=== PATIENT | male | born 1985 | race Caucasian/White ===

== ENCOUNTER → 2018-03-14 19:48 | Outpatient (CLI) | payer OTHER, MEDICAID, SELFPAY ==
[2018-03-14 20:33] LABS: Anion Gap 13.6 mEq/L (5-15); Blood Urea Nitrogen 14 mg/dL (7-18); Carbon Dioxide 28 mmol/L (21.0-32.0); Chloride 102 mmol/L (98-107); Creatinine,Serum 1.04 mg/dL (0.70-1.30); Estimated Glomerular Filt Rate 82 ml/min (>60); GFR (African American) 100 ML/MIN (>60); Glucose 94 mg/dL (74-106); Potassium 3.6 mmoL/L (3.5-5.1); Sodium 140 mmol/L (136-145); Uric Acid 5.7 mg/dL (2.6-7.2)
== END ==
PROVIDERS: PCP Emergency Medicine; Visit Provider Emergency Medicine
DX: M79.674 Pain in right toe(s) (principal)
CPT/HCPCS: 80048; 84550

== ENCOUNTER 2020-09-27 13:19 | Emergency (ER) | payer OTHER, SELFPAY ==
[2020-09-27 13:32] VITALS: BP 141/96; PULSE 87; RESP 20; TEMP 36.9; O2SAT 100; BMI 30.2
--- NOTE | 2020-09-27 13:35 | HMH.EDUTC ---
[facility] Disposition Clinical Impression: Viral gastroenteritis Disposition: Home, Self-Care Condition on Discharge: Good Instructions: Viral Gastroenteritis, DI for Viral Gastroenteritis -- Adult Additional Instructions: Drink plenty of fluids. Water or gatorade would be best. Take tylenol for pain or fever. If your symptoms worsen please return FERNIE. Follow up with your regular doctor. GO TO THE ER FOR ANY WORSENING SYMPTOMS Prescriptions: Ondansetron [Zofran 4mg ODT] 4 mg PO Q8HP PRN #12 tab.rapdis PRN Reason: Nausea Transmission Status: Received by [facility] Referrals: PCP,No [Primary Care Provider] - Time of Disposition: 13:58 Medical Decision Making - Medical Records Medical records reviewed: No: I reviewed the patient's medical records. - Florin Inquiry Pt receiving controlled substance: No Vital Signs: 09/27/20 13:32 Temperature 98.5 F Temperature Source Oral Pulse Rate [Right Brachial] 87 Respiratory Rate 20 Blood Pressure [Right Arm] 141/96 H Blood Pressure Mean [Right Arm] 111 Blood Pressure Source [Right Arm] Automatic Cuff Blood Pressure Position [Right Arm] Sitting 02 Sat by Pulse Oximetry 100 Orders (Tests/Meds): ORDERS Category Date Time Status Covid-19 Nasal PCR Sendout [facility] 09/27/20 13:24 Ordered [facility] HPI - General Stated complaint: fever, body aches Time Seen by Provider: 09/27/20 13:36 - History of Present Illness Provider Complaint: He reports that he has had body aches, low grade fever, abdominal cramping, n/v/d for the past 4 days. He has not ran a fever since yesterday. - Related Data Home Medications Medication Instructions Recorded Confirmed raNITIdine HCl [Zantac] 150 mg PO BID 03/27/18 09/12/20 Previous Rx's Medication Instructions Recorded Cefdinir [Omnicef 300mg Capsule] 300 mg PO BID #14 cap 03/27/18 predniSONE [Prednisone 20mg 20 mg PO BID #10 tab 03/27/18 Tab] Azithromycin [Z-Prieto 250mg Tab*] 250 mg PO UD DOSE PK #6 tab 01/31/19 Benzonatate [Tessalon Perle 100mg 100 mg PO TIDP PRN #30 cap 01/31/19 Cap] Promethazine/Dextromethorphan 5 ml PO Q6HP PRN #240 syrup 01/31/19 [Promethazine-Dm Syrup] Azithromycin [Z-Prieto 250mg Tab*] 250 mg PO UD DOSE PK #6 tab 11/07/19 Brompheniramine/Pseudoephed/Dm 5 ml PO Q6HP PRN #240 syrup 11/07/19 [Bromfed Dm Cough Syrup] methylPREDNISolone [Medrol] 4 mg PO DIRECTED 6 Days #21 11/07/19 tab.ds.pk Ondansetron [Zofran 4mg ODT] 4 mg PO Q8HP PRN #12 tab.rapdis 09/27/20 Allergies Allergy/AdvReac Type Severity Reaction Status Date / Time No Known Allergies Allergy Verified 09/12/20 14:40 [facility] History - Hepatitis A Screen Attestation statement:: This patient has been screened for Hepatitis A risk factors. I have reviewed the patient's past medical history: Yes Medical History: Denies:: Cancer, Diabetes Mellitus Type 1, Diabetes Mellitus Type 2, MRSA Other Surgeries: Yes: No Previous Surgery Amputation: No Fractures: No - Social History Smoking Status: Current every day smoker Tobacco Type: smokeless tobacco Alcohol Intake: never Alcohol Intake Frequency:: a few times a month Occupational Status: employed Housing: house Household Members: family Family Hx:: Hypertension ROS Obtained: Yes All systems reviewed & no additional complaints - Constitutional Constitutional: Reports chills, Reports fever(s), Reports poor appetite, Reports malaise - Eyes Eyes: Denies eye discharge - ENT Ears, Nose, Mouth, and Throat: Denies dizziness, Denies otalgia, Denies sore throat - Cardiovascular Cardiovascular: Denies chest pain - Respiratory Respiratory: No chest congestion, No cough, No stridor, No wheezing - Gastrointestinal Gastrointestingal: Reports: as per HPI - Musculoskeletal Musculoskeletal: Denies back pain - Integumentary/Breasts Skin/Breast: Denies rash Physical Exam - General General appearance: alert, in no
[2020-09-27 14:04] VITALS: BP 141/96; PULSE 87; RESP 20; TEMP 36.9; O2SAT 100
[2020-09-27 15:01] LABS: UTC Influenza A Antigen Negative (Negative)
[2020-09-27 15:03] LABS: UTC Influenza B Antigen Negative (Negative)
== END 2020-09-27 14:08 | disposition home or self-care (01) ==
PROVIDERS: Emergency Provider Nurse Practitioner Family
DX: U07.1 COVID-19 (principal); F17.210 Nicotine dependence, cigarettes, uncomplicated
CPT/HCPCS: 87804; 99201; U0003

== ENCOUNTER → 2020-11-22 13:32 | Outpatient (CLI) | payer OTHER, SELFPAY ==
[2020-11-22 15:42] LABS: Coronavirus 19 IgG Antibody Positive (Negative); Coronavirus 19 IgM Antibody Negative (Negative)
== END ==
PROVIDERS: Visit Provider Urology
DX: Z01.812 Encounter for preprocedural laboratory examination (principal); Z86.16 Personal history of COVID-19; Z30.2 Encounter for sterilization
CPT/HCPCS: 36415; 86328

== ENCOUNTER 2020-11-24 08:25 | Day surgery (SDC) | payer OTHER, SELFPAY ==
[2020-10-10 14:24] VITALS: BMI 29.7
[2020-11-24 08:36] VITALS: BP 157/103; PULSE 69; RESP 18; TEMP 36.6; O2SAT 97
[2020-11-24 09:51] VITALS: BP 131/88; PULSE 72; RESP 18; O2SAT 98
[2020-11-24 09:58] VITALS: BP 131/88; PULSE 72; RESP 18; TEMP 36.4; O2SAT 98
--- NOTE | 2020-11-24 14:02 | HMH.OPNOTE ---
Date of procedure: 11/24/20 Pre-op Diagnosis:: Desires sterilization Post-op Diagnosis:: Same Procedure performed:: Bilateral vasectomy Surgeon:: Brendon Kern MD Anesthesia: local Estimated blood loss (mL): 0 Clinical Note:: 35-year-old white male seen recently for vasectomy consultation in the office presents today for the vasectomy. Operative findings:: Testicular exam was performed prior to procedure and both testicles were within normal limits. Procedure went well there are no complications. Operative note:: Patient taken to the vasectomy suite after informed consent was obtained. On the stretcher he was prepped and draped in the standard surgical fashion. Scrotal and testicular examination were normal. Left vas was easily palpable and was brought cephalad up to the midline raphae anterior and superiorly. Local anesthetic was placed under the skin at the midline raphae and in and around the vas deferens. After analgesia a scalpel was used to make an incision in the midline raphae and ring forceps then used to grasp the vas and it was brought up through the incision. The basal sheath was then incised with a scalpel and the vas proper was dissected from its overlying adventitial and vascular layers. 1 clip was placed distally and 2 clips proximally on the vas. A 1 cm segment was then excised and the lumen of the vas was cauterized proximally and distally. Stasis achieved of the surrounding structures and the left vas was dropped back into the left hemiscrotum. The right vas was then brought up through the same incision and local anesthetic placed around it. The identical procedure was performed on the patient's right side. The right vas was dropped back into the hemiscrotum after hemostasis and a 3-0 chromic in a horizontal mattress fashion was placed into the skin. Neosporin placed over the incision and gauze pads and jockstrap were placed for compression. Patient tolerated procedure well there are no complications. Condition: stable Disposition: same day Specimens:: Vas segments were not sent to pathology Complications:: None
== END 2020-11-24 10:04 | disposition home or self-care (01) ==
LOC: OUTP 08:27
PROVIDERS: Visit Provider Urology
PROC: (CPT 55250; principal; 2020-11-24 09:00)
DX: Z30.2 Encounter for sterilization (principal); K21.9 Gastro-esophageal reflux disease without esophagitis; Z79.899 Other long term (current) drug therapy
CPT/HCPCS: 55250

== ENCOUNTER 2021-04-30 22:12 | Emergency (ER) | payer OTHER, SELFPAY ==
[2021-04-30 22:21] VITALS: BP 140/99; PULSE 78; RESP 17; TEMP 36.8; O2SAT 96; BMI 31.3
--- NOTE | 2021-04-30 22:43 | HMH.EDEYEP ---
ED Disposition Clinical Impression: Acute iritis Foreign body in eye Qualifiers: Encounter type: initial encounter Laterality: right Qualified Code(s): T15.91XA - Foreign body on external eye, part unspecified, right eye, initial encounter Disposition: Home, Self-Care Condition on Discharge: Good Instructions: DI for Anterior Uveitis Additional Instructions: use meds and see dr esparza at 0900 Referrals: Provider,Referral, [Primary Care Provider] - - Critical Care Critical Care Time: No Attestation: On 04/30/21, the high probability of a clinically significant, sudden or life threatening deterioration of the following system(s) required my full and direct attention, intervention and personal management. The time I documented below is in addition to time spent performing reported procedures but includes the following listed in this critical care notation. Medical Decision Making - Medical Records Medical records reviewed: Yes: I reviewed the patient's medical records. - Florin Inquiry Pt receiving controlled substance: No Vital Signs: 04/30/21 22:21 Temperature 98.3 F Temperature Source Oral Pulse Rate [Right Brachial] 78 Respiratory Rate 17 Blood Pressure [Right Arm] 140/99 H Blood Pressure Mean [Right Arm] 112 Blood Pressure Source [Right Arm] Automatic Cuff Blood Pressure Position [Right Arm] Sitting 02 Sat by Pulse Oximetry 96 Oxygen Delivery Method Room Air - Physician Consults Physician Consulted: dr esparza Time: 22:55 Reason -: Pt condition Medical Decision Narrative: fb with iritis and will see dr esparza at 0900 Eye Problem HPI - General Chief complaint: Eye Problems Stated complaint: fb in R eye Time Seen by Provider: 04/30/21 22:35 Mode of Arrival: Family Vehicle Source of Information: Patient, Spouse, Medical Record Limitations: No Limitations Description of Symptoms (Recalled from ER Triage Doc. by RN): right eye irritation x 3 days, patient has no idea what could have started this, however he is able to visualize as long as he has his dark shades on. when he takes them off he immediately has pain/burning and watering of eye. - History of Present Illness HPI Narrative: rt eye pain and photophobia with fb over the last few days - no loss of vision chief complaint: foreign body Onset (ago): day(s) Onset description: gradual Duration: constant Location: right eye Eye Symptoms: foreign body sensation, photophobia Place: home Mechanism: none Severity: moderate Associated symptoms: none Treatments Prior to Arrival: OTC eye drops - Related Data Patient tetanus UTD: Yes Home Medications Medication Instructions Recorded Confirmed Esomeprazole Magnesium [Nexium] 20 mg PO DAILY 10/10/20 11/24/20 Previous Rx's Medication Instructions Recorded Hydrocod/Acet 5/325 mg [[place] 1 tab PO Q6HP PRN #7 tab 11/24/20 5/325mg tablet] Allergies Allergy/AdvReac Type Severity Reaction Status Date / Time No Known Allergies Allergy Verified 10/10/20 14:11 [facility] History - Hepatitis A Screen Drug use history?: No High risk sexual behaviors?: No History of sexually transmitted infection?: No Currently employed?: No Childcare worker?: No Do you have indoor plumbing?: Yes Do you have electricity?: Yes Attestation statement:: This patient has been screened for Hepatitis A risk factors. I have reviewed the patient's past medical history: Yes Medical History: Denies:: Cancer, Diabetes Mellitus Type 1, Diabetes Mellitus Type 2, Internal Pacemaker, MRSA, Seizures Other Surgeries: Yes: No Previous Surgery. No: Pacemaker Amputation: No Fractures: No - Social History Smoking Status: Never smoker Tobacco Type: smokeless tobacco Alcohol Intake: never Alcohol Intake Frequency:: a few times a week Occupational Status: employed Housing: house Household Members: spouse Family Hx:: No significant family history ROS Obtained: Yes All systems reviewed & no ad
[2021-04-30 22:52] VITALS: BP 140/99; PULSE 78; RESP 17; TEMP 36.8; O2SAT 96
== END 2021-04-30 23:05 | disposition home or self-care (01) ==
PROVIDERS: Emergency Provider Emergency Medicine
DX: H20.00 Unspecified acute and subacute iridocyclitis (principal); T15.91XA Foreign body on external eye, part unspecified, right eye, initial encounter
CPT/HCPCS: 99281

== ENCOUNTER → 2021-11-19 08:37 | Outpatient (CLI) | payer OTHER, SELFPAY ==
[2021-11-19 10:27] VITALS: BMI 26.6
[2021-11-19 10:38] LABS: Adenovirus,PCR Not Detected (NotDetected); Bordetella Pertussis Not Detected (NotDetected); Chlamydophila Pneumoniae, PCR Not Detected (NotDetected); Coronavirus 229E Not Detected (NotDetected); Coronavirus NL63 Not Detected (NotDetected); Coronavirus OC43 Not Detected (NotDetected); Coronovirus HKU1,PCR Not Detected (NotDetected); Human Metapneumovirus Not Detected (NotDetected); Influenza A, PCR Not Detected (NotDetected); Influenza AH1, 2009 Not Detected (NotDetected); Influenza AH1, PCR Not Detected (NotDetected); Influenza AH3,PCR Not Detected (NotDetected); Influenza B, PCR Not Detected (NotDetected); Mycoplasma Pneumoniae, PCR Not Detected (NotDetected); Parainfluenza 1, PCR Not Detected (NotDetected); Parainfluenza 2, PCR Not Detected (NotDetected); Parainfluenza 3, PCR Not Detected (NotDetected); Parainfluenza 4, PCR Not Detected (NotDetected); Respiratory Syncytial Virus Not Detected (NotDetected); Rhinovirus/Enterovirus Not Detected (NotDetected)
== END ==
PROVIDERS: Visit Provider Student in an Organized Health Care Education/Training Program
DX: U07.1 COVID-19 (principal)
CPT/HCPCS: 87486; 87581; 87632; 87798; C9803; U0003; U0005

== ENCOUNTER → 2021-12-12 09:10 | Outpatient (CLI) | payer OTHER, SELFPAY ==
--- NOTE | 2021-12-12 | CA_ITS ---
APPROVED REPORT EXAM: Comprehensive 2D, Doppler, and color-flow Echocardiogram Curriculum Development Coordinator: Susan Beal CRT Ht: 5 ft 8 in Wt: 195lbs BSA: 2.02 BP: 140/99 mmHg Indications: Chest Pain, Shortness of Breath, Fatigue, Hypertension/HDD 2D Dimensions LVOT 2.00 cm (M/F) 1.5-2.5 LA Volume 32.90 mL LA Volume Index 16.30 mL/m2 (M/F) 16-34 M-Mode Dimensions RVDd 3.11 cm (0.9-2.6) LA Diam 3.44 cm (1.9-4.0) LVDd 5.05 cm (3.5-5.7) Ao Diam 3.95 cm (2.0-3.7) LVDs 3.72 cm (3.5-5.7) IVSd 1.29 cm (0.6-1.1) PWd 0.72 cm (0.6-1.1) EF (Teich) 51.30% FS 26.30% EDV (Teich) 121.00 mL ESV (Teich) 58.90 mL LV Diastology E Decel Time 227.00 (160-240 msec) E/A Ratio 1.40 MED E' 8.60 (< 7 cm/sec) MED A' 9.70 cm/s E'/MED E' Ratio 8.44 (>14) LAT E' 16.50 (<10 cm/sec) LAT A' 11.80 cm/s E/LAT E' Ratio 4.40 (>14) Aortic Valve AO Peak GR. 5.60 mmHg Mitral Valve MV A Velocity 52.00 (40-130 cm/s) E/A Ratio 1.40 MV Decel. Time 227.00 (160-240 ms) Pulmonary Valve PV Peak Velocity 101.00 (50-150 cm/s) Tricuspid Valve TR P. Velocity 272.00 cm/s RAP Estimate 10.00 mmHg RVSP 39.70 mmHg Left Ventricle Left atrium is normal size, left ventricle is normal size, there is no concentric left ventricular hypertrophy, visually estimated ejection fraction 55% with no regional wall motion abnormality, diastolic parameters are within normal limits. Right Ventricle Right atrium and right ventricle are normal size and contractility. Aortic Valve Aortic valve is grossly normal, there is no aortic stenosis or aortic insufficiency. Mitral Valve Mitral valve is grossly normal, there is trace mitral regurgitation. Tricuspid Valve Tricuspid valve is grossly normal, there is trace tricuspid regurgitation. Pulmonic Valve Pulmonic valve is poorly visualized. Great Vessels Aortic root is normal size. No significant pericardial effusion. Inferior vena cava normal size with normal inspiratory collapse. Conclusion 1. Normal left ventricular size, preserved left ventricular systolic function, visually estimated ejection fraction 55% with no regional wall motion abnormality, diastolic parameters are within normal range. 2. Trace mitral and tricuspid regurgitation. 3. No significant pericardial effusion noted. Electronically signed by : Abhishek Grady MD 12/12/2021 21:42:08
--- NOTE | 2021-12-12 | CA_ITS ---
APPROVED REPORT Exam: Exercise Treadmill Technologist: Iris Thorpe, Ht: 5 ft 8 in Wt: 198 lbs BSA: 2.03 m2 HR: 60 bpm BP: 137/90 mmHg Rhythm: NSR, NSSTTW ABNORMALITIES Indications: New onset chest pain, Hypertension Medical History Medical History: HTN Medications: Nexium,,,,, Allergies: No known drug allergies Cardiac Risk Factors: HTN Stress Test Details Test: Venancio, Exercise stress testing was performed using a Venancio protocol. HR Resting HR: 65 bpm Max Heart Rate (APMHR): 183.365120 bpm Max HR Achieved: 179 bpm Target HR (85% APMHR): 155.707808 bpm % of APMHR: 97.81 Recovery HR: 106 bpm BP Resting BP: 142/95 mmHg Max BP: 186/110 mmHg Recovery BP: 186.0/110.0 mmHg ECG Resting ECG: NSR, NSSTTW ABNORMALITIES Clinical Reason for Termination: Dyspnea Exercise duration: 10:01 min Highest Stage Achieved: Stage 3: 3.4 mph at 14% grade. Exercise capacity: 12.8 METs Stress ECG Conclusion MAX HR: 179. % OF PM 113. MAX BP 180/100. METS 12.8. TEST STOPPED DUE TO SOA. NO CP. RARE PVC. <1.[address] SEGMENT CHANGES. NEGATIVE STRESS. Test Summary REST . . . . . . . Standing REST . . . . . . . Sitting REST 07:28 0.0 1.2 65 . 142/ 95 . . Stage 1 01:00 10.0 1.7 93 . . . . Stage 1 02:00 10.0 1.7 93 . . . . Stage 1 03:00 10.0 1.7 89 . 160/ 90 . . Stage 2 01:00 12.0 2.5 106 . . . . Stage 2 02:00 12.0 2.5 114 . . . . Stage 2 03:00 12.0 2.5 121 . 165/100 . . Stage 3 01:00 14.0 3.4 143 . . . . Stage 3 02:00 14.0 3.4 151 . . . . Stage 3 03:00 14.0 3.4 159 . 180/100 . . Stage 4 01:00 16.0 4.2 179 . . . . Stage 4 01:01 16.0 4.2 178 . . . Stop exercise at 10:01 RECOVERY 01:00 0.0 0.0 148 . 180/ 95 . . RECOVERY 02:00 0.0 0.0 117 . 180/ 95 . . RECOVERY 03:00 0.0 0.0 114 . 180/ 95 . . RECOVERY 04:00 0.0 0.0 109 . 186/110 . . RECOVERY 04:25 0.0 0.0 116 . 155/107 . . Electronically signed by : Danyel Figueroa MD 12/13/2021 18:53:08
[2021-12-12 09:41] LABS: Basophils # 0.1 K/mm3 (0-0.2); Basophils % 1.1 % (0.1-2.0); Eosinophils # 0.1 K/mm3 (0.0-0.4); Eosinophils % 1.9 % (0.1-12.0); Hematocrit 50.3 % (42.0-52.0); Hemoglobin 16.6 g/dL (14.1-18.0); Lymphocytes # 2.2 K/mm3 (0.7-4.5); Lymphocytes % 37.4 % (10-50); Mean Corpuscular HGB Conc 32.9 g/dL (31.8-35.4); Mean Corpuscular Hemoglobin 28.6 pg (27.0-31.2); Mean Corpuscular Volume 86.9 fl (80-94); Mean Platelet Volume 7.9 fl (7.4-10.4); Monocytes # 0.4 K/mm3 (0.1-1.0); Monocytes % 7.4 % (1.7-9.3); Neutrophils % 52.2 % (37.0-80.0); Platelet Count 347 K/mm3 (142-424); Red Blood Count 5.79 M/mm3 (4.60-6.20); Red Cell Distribution Width 13.5 % (11.5-17.5); White Blood Count 5.8 K/mm3 (4.8-10.8)
[2021-12-12 10:35] LABS: Alanine Aminotransferase 43 U/L (12-78); Albumin Level 4.6 g/dl (3.5-5.0); Albumin/Globulin Ratio 1.5 (1.1-1.8); Alkaline Phosphatase 44 U/L (38-126); Anion Gap 13.8 mEq/L (5-15); Aspartate Amino Transferase 33 U/L (17-59); Bilirubin,Total 0.6 mg/dl (0.2-1.3); Blood Urea Nitrogen 14 mg/dl (9-20); Calcium 9.8 mg/dl (8.4-10.2); Carbon Dioxide 27 mmol/L (22.0-30.0); Chloride 103 mmol/L (98-107); Chol/HDL Ratio 5.5 (1-3.5); Cholesterol 220 mg/dl (140-200); Estimated Glomerular Filt Rate 95 ml/min (>60); GFR (African American) 115 ML/MIN (>60); Glucose 93 mg/dl (74-100); HDL Cholesterol 40 mg/dl (40-60); Potassium 4.8 mmoL/L (3.5-5.1); Sodium 139 mmol/L (136-145); Total Protein,Serum 7.6 g/dl (6.3-8.2); Triglycerides 145 mg/dl (30-150); VLDL Cholesterol 29 mg/dL (0-40)
[2021-12-12 10:46] LABS: Direct LDL Cholesterol 153.19 mg/dL (100-129)
[2021-12-12 11:05] LABS: Thyroid Stimulating Hormone 1.57 uIU/mL (0.465-4.68)
== END ==
PROVIDERS: PCP Internal Medicine Adolescent Medicine; Visit Provider Nurse Practitioner Family
DX: R07.9 Chest pain, unspecified (principal); I10 Essential (primary) hypertension
CPT/HCPCS: 36415; 80053; 80061; 84443; 85025; 93017; 93306

== ENCOUNTER → 2021-12-25 14:21 | Outpatient (CLI) | payer OTHER, SELFPAY | PROVIDERS: PCP Nurse Practitioner Family; Visit Provider Nurse Practitioner Family | DX: R00.1 Bradycardia, unspecified (principal) | CPT/HCPCS: 93225; 93226 ==

== ENCOUNTER → 2022-01-07 14:59 | Outpatient (CLI) | payer OTHER, SELFPAY ==
--- NOTE | 2022-01-07 15:01 | US_ITS ---
FINAL REPORT CLINICAL HISTORY: TESTICULAR SWELLING FINDINGS: Technique: Ultrasound images of the testicles were obtained. Findings: The testicles are normal in size. No intratesticular mass identified. Arterial flow is identified bilaterally. There is a small right hydrocele. IMPRESSION: No intratesticular mass or evidence of torsion. Small right hydrocele. Reviewed, Interpreted and Dictated by Dylon Dumas III, MD Transcribed by Howard Robison Authenticated by Dylon Dumas III, MD on 01/08/2022 07:50:10 AM [facility]
== END ==
PROVIDERS: PCP Nurse Practitioner Family; Visit Provider Nurse Practitioner Family
DX: N50.89 Other specified disorders of the male genital organs (principal)
CPT/HCPCS: 76870

== ENCOUNTER 2024-09-24 08:05 | Outpatient (CLI) | payer OTHER, SELFPAY ==
[2024-09-24 09:36] LABS: Alanine Aminotransferase 44 U/L (12-78); Albumin Level 4.6 g/dl (3.5-5.0); Albumin/Globulin Ratio 1.6 (1.1-1.8); Alkaline Phosphatase 44 U/L (38-126); Anion Gap 11.8 mEq/L (5-15); Aspartate Amino Transferase 32 U/L (17-59); Bilirubin,Total 0.9 mg/dl (0.2-1.3); Blood Urea Nitrogen 17 mg/dl (9-20); Calcium 9.5 mg/dl (8.4-10.2); Carbon Dioxide 26 mmol/L (22.0-30.0); Chloride 108 mmol/L (98-107); Chol/HDL Ratio 3.5 (1-3.5); Cholesterol 181 mg/dl (140-200); Estimated Glomerular Filt Rate 74 ml/min (>60); GFR (African American) 90 ML/MIN (>60); Globulin 2.9 g/dL (1.3-3.2); Glucose 93 mg/dl (74-100); HDL Cholesterol 51 mg/dl (40-60); Potassium 4.8 mmoL/L (3.5-5.1); Sodium 141 mmol/L (136-145); Total Protein,Serum 7.5 g/dl (6.3-8.2); Triglycerides 89 mg/dl (30-150); VLDL Cholesterol 18 mg/dL (0-40)
== END 2024-09-24 23:59 | disposition home or self-care (01) ==
LOC: LAB 08:08
PROVIDERS: PCP Internal Medicine Adolescent Medicine; Visit Provider Internal Medicine Adolescent Medicine
DX: I10 Essential (primary) hypertension (principal); E78.5 Hyperlipidemia, unspecified
CPT/HCPCS: 36415; 80053; 80061

== ENCOUNTER 2025-11-01 08:29 | Outpatient (CLI) | payer OTHER, SELFPAY ==
[2025-11-01 09:06] LABS: Albumin Level 4.6 g/dl (3.5-5.0); Chloride 101 mmol/L (98-107); Sodium 138 mmol/L (136-145)
[2025-11-01 09:07] LABS: Potassium 4.7 mmoL/L (3.5-5.1)
[2025-11-01 09:09] LABS: Alanine Aminotransferase 76 U/L (12-78); Albumin/Globulin Ratio 1.5 (1.1-1.8); Alkaline Phosphatase 49 U/L (38-126); Anion Gap 11.7 mEq/L (5-15); Aspartate Amino Transferase 42 U/L (17-59); Bilirubin,Total 0.9 mg/dl (0.2-1.3); Blood Urea Nitrogen 15 mg/dl (9-20); Carbon Dioxide 30 mmol/L (22.0-30.0); Cholesterol 160 mg/dl (140-200); Creatinine,Serum 1.10 mg/dl (0.66-1.25); Estimated Glomerular Filt Rate 74 ml/min (>60); GFR (African American) 89 ML/MIN (>60); Globulin 3.0 g/dL (1.3-3.2); Total Protein,Serum 7.6 g/dl (6.3-8.2); Triglycerides 168 mg/dl (30-150)
[2025-11-01 09:10] LABS: Calcium 10.0 mg/dl (8.4-10.2); Glucose 102 mg/dl (74-100); HDL Cholesterol 49 mg/dl (40-60)
== END 2025-11-01 23:59 | disposition home or self-care (01) ==
LOC: LAB 08:30
PROVIDERS: PCP Internal Medicine Adolescent Medicine; Visit Provider Nurse Practitioner Family
DX: E78.5 Hyperlipidemia, unspecified (principal); I10 Essential (primary) hypertension
CPT/HCPCS: 36415; 80053; 80061